=== PATIENT | female | born 1960 | race Caucasian/White ===

== ENCOUNTER 2023-04-20 17:31 | Emergency (ER) | payer OTHER ==
[~2023-04-20] VITALS: Ht 160 cm; Wt 119.7 kg
[~2023-04-20 17:31] MED LIST: CRUTCH1 EACH; DILAUDID4 MG PO; FLOMAX0.4 MG PO; HYDROCODON-ACE1 EA11 PO; HYDROMORPHONE HC4 MG PO; LEVOTHYROXINE75 MC1 PO; METHIMAZOLE5 MG PO; MIRALAX17 GM PO; NORCO 5-325 TA1 EACH PO; OMEPRAZOLE20 MG PO; OXYCODONE HCL5 MG PO; PANTOPRAZOLE SO40 MG PO; PERCOCET 5-3251 EACH PO; XARELTO10 MG PO
[2023-04-20] MEDS ORDERED: CEPHALEXIN500 M1 PO (20:18)
[2023-04-20 20:45] VITALS: BP 143/83
== END 2023-04-20 20:21 | disposition home or self-care (01) ==
LOC: ED 17:31
DX: S81.811A Laceration without foreign body, right lower leg, initial encounter (principal); W22.09XA Striking against other stationary object, initial encounter; Z88.2 Allergy status to sulfonamides; Z79.890 Hormone replacement therapy; Z79.899 Other long term (current) drug therapy
CPT/HCPCS: 12002; 99282-25; A9270